=== PATIENT | male | born 1935 | race Caucasian/White ===

== ENCOUNTER → 2017-11-21 | Outpatient (CLI) | payer MEDICARE, OTHER ==
[~2017-11-21] MED LIST: ASPIR 8181 MG PO; ASPIRIN; BETIMOL OP; BETIMOL5 M1 OU; CARDURA; CARDURA4 MG PO; DYAZIDE 37.5-21 EACH PO; LATANOPROST2.5 ML OP; LIPITOR; LIPITOR20 MG PO; LISINOPRIL20 MG PO; METOPROLOL; METOPROLOL TART25 MG PO; MULTIVITAMINS1 EAC8 PO; NEXIUM; NEXIUM40 MG PO; NORCO 10MG-325MG1 EA PO; PLAVIX75 MG PO; PRINIVIL; PRINIVIL20 MG PO; PROCARDIA; PROCARDIA XL90 MG PO
--- NOTE | 2017-11-21 11:47 | Diagnostic Imaging Report ---
PROCEDURE:X-RAY UPPER GI SERIES WITH AIR CONTRAST COMPARISON:None. INDICATIONS:GERD FINDINGS:The patient was given air crystals, thick barium, and thin barium to drink in upright and prone positions. Multiple images of the esophagus, stomach and duodenum were obtained. There is tracheal aspiration with a resultant cough that clears the aspiration. Tertiary waves of the distal esophagus are present. There is gastroesophageal reflux. No hiatal hernia. The stomach and duodenum are normal without evidence of intrinsic mucosal or extrinsic abnormality. There is no evidence of ulcer or fold thickening. Fluoroscopy time: 1.0 minutes. Total dose: 4.61 mGy CONCLUSION: 1. 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 2. Tracheal aspiration. 3. Active gastroesophageal reflux without radiographic evidence of reflux esophagitis. Harpreet Yuen D.O. Dictated by: Harpreet Yuen D.O. on 11/21/2017 at 11:55 Electronically approved by: Harpreet Yuen D.O. on 11/21/2017 at 11:55
== END ==
LOC: DX 08:12
PROVIDERS: ATTEND Internal Medicine
DX: K21.0 Gastro-esophageal reflux disease with esophagitis (principal)
CPT/HCPCS: 74246

== ENCOUNTER → 2018-01-12 | Day surgery (SDC) | payer MEDICARE, OTHER ==
[2018-01-11 16:06] LABS: BASOPHILS % 0.3 % (0.0-1.0); EOSINOPHILS # (AUTO) 0.1 (0.0-0.4); EOSINOPHILS % 1.1 % (0.0-6.0); HEMATOCRIT 36.5 % (38.2-49.6); HEMOGLOBIN 11.9 g/dL (14.0-18.0); LYMPHOCYTES # (AUTO) 1.5 (1.0-3.2); LYMPHOCYTES % 16.7 % (18.0-39.1); MEAN CORPUSCULAR HEMOGLOBIN 34.4 pg (28-32); MEAN CORPUSCULAR HGB CONC 32.6 g/dL (31-35); MEAN CORPUSCULAR VOLUME 105.5 fL (81-99); MONOCYTES # (AUTO) 0.7 (0.2-0.8); MONOCYTES % 7.6 % (4.4-11.3); NEUTROPHILS # (AUTO) 6.8 (2.1-6.9); PLATELET COUNT 227 x10e3/uL (140-360); RED BLOOD COUNT 3.46 x10e6/uL (4.3-5.7); RED CELL DISTRIBUTION WIDTH 13.1 % (11.7-14.4)
[~2018-01-12] MED LIST changes: +AMITIZA24 MCG PO; +CYCLOBENZAPRINE5 MG PO; +GABAPENTIN100 MG PO; +LIDOCAINE HCL 2% LOCAL INJ 5 ML SDV VIAL INJ ONE; +NORCO 10-325 T1 EACH PO; +PANTOPRAZOLE SO40 MG PO; +PROPOFOL IV EMULSION 10 MG/ML 50 ML VIAL ONE; +VENTOLIN HFA18 GM INH
--- OUTSIDE RECORDS SUMMARY | 2018-01-12 06:39 | XMS REPORT ---
Author Author [facility] Address Unknown Phone Unavailable Care Team Providers Care Printer Technician Name Role Phone AYANA EAST Unavailable Unavailable Problems This patient has no known problems. Allergies, Adverse Reactions, Alerts This patient has no known allergies or adverse reactions. Medications This patient has no known medications. Results Test Description Test Time Test Comments Text Results Atomic Results Result Comments UPPER GI W/AIR CONTR [place] [address] Patient Name: JOCELINE CAR MR #: [id number] : 1935 Age/Sex: 81/M Req # : [id number] Adm Physician: Ordered by: AYANA EAST MD Report #: [id number] Location: DX Room/Bed: Procedure: [id number] DX/UPPER GI W/AIR CONTR Exam Date: 11/21/17 Exam Time: 0845 REPORT STATUS: Signed PROCEDURE: X-RAY UPPER GI SERIES WITH AIR CONTRAST COMPARISON: None. INDICATIONS: GERD FINDINGS: The patient was given air crystals, thick barium, and thin barium to drink in upright and prone positions. Multiple images of the esophagus, stomach and duodenum were obtained. There is tracheal aspiration with a resultant cough that clears the aspiration. Tertiary waves of the distal esophagus are present. There is gastroesophageal reflux. No hiatal hernia. The stomach and duodenum are normal without evidence of intrinsic mucosal or extrinsic abnormality. There is no evidence of ulcer or fold thickening. Fluoroscopy time: 1.0 minutes. Total dose: 4.61 mGy CONCLUSION: 1. 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 2. Tracheal aspiration. 3. Active gastroesophageal reflux without radiographic evidence of reflux esophagitis. Amando Yuen D.O. Dictated by: Amando Yuen D.O. on 11/21/2017 at 11:55 Electronically approved by: Amando uYen D.O. on 11/21/2017 at 11:55 Dictated By: AMANDO YUEN DO 1155 Transcribed By: DARRYL on 11/21/17 1156 COPY TO: AYANA EAST MD
== END | disposition home or self-care (01) ==
LOC: OR 06:36
PROVIDERS: ATTEND Internal Medicine Gastroenterology
DX: K29.70 Gastritis, unspecified, without bleeding (principal); K22.2 Esophageal obstruction; K21.9 Gastro-esophageal reflux disease without esophagitis; K44.9 Diaphragmatic hernia without obstruction or gangrene; I10 Essential (primary) hypertension; J44.9 Chronic obstructive pulmonary disease, unspecified; I25.10 Atherosclerotic heart disease of native coronary artery without angina pectoris; I25.2 Old myocardial infarction; Z88.8 Allergy status to other drugs, medicaments and biological substances; F17.210 Nicotine dependence, cigarettes, uncomplicated; Z01.810 Encounter for preprocedural cardiovascular examination; Z01.812 Encounter for preprocedural laboratory examination; Z79.82 Long term (current) use of aspirin
CPT/HCPCS: 36415; 43239; 85025; 93005; J2001